=== PATIENT | female | born 1995 | race Hispanic/Latino ===

== ENCOUNTER 2018-01-27 | Emergency (ER) | payer SELFPAY ==
--- NOTE | 2018-01-27 18:39 | EDPHYS ---
Physician Documentation [facility] Name: Arely Gomez Age: 22 yrs Sex: Female : 1995 Arrival Date: 01/27/2018 Time: 16:56 Bed 14 Private MD: ED Physician Willard Gomez HPI: 01/27 18:35 This 22 yrs old Female presents to ER via Ambulatory with complaints of rn Headache. 18:35 The patient complains of pain to the forehead. The patient describes the headache as rn aching. Onset: The symptoms/episode began/occurred 4 day(s) ago. Associated signs and symptoms: Pertinent negatives: altered mental status, dizziness, fever, malaise, nausea, neck stiffness, paresthesias, Photophobia rash, sinus congestion, sinus tenderness, vision changes, vision loss, vomiting, weakness, vertigo. Severity of symptoms: At its worst the pain was moderate, in the emergency department the pain has resolved. The patient has experienced similar episodes in the past. Reports intermittent headache for 4 days, gets better with medication from [place], no trauma, no fever, no vomiting, currently pain free because took a nap. No drug use. Currently on menstrual cycle. . 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 - Social history:: Smoking status: Patient uses tobacco products, denies chronic smoking, but will smoke occasionally. - Family history:: not pertinent. - Hospitalizations: : No recent hospitalization is reported. ROS: 18:35 Constitutional: Negative for fever, chills, and weight loss, Eyes: Negative for injury, rn pain, redness, and discharge, Neck: Negative for injury, pain, and swelling, Cardiovascular: Negative for chest pain, palpitations, and edema, Respiratory: Negative for shortness of breath, cough, wheezing, and pleuritic chest pain, Abdomen/GI: Negative for abdominal pain, nausea, vomiting, diarrhea, and constipation, Back: Negative for injury and pain, MS/Extremity: Negative for injury and deformity, Skin: Negative for injury, rash, and discoloration, Neuro: Negative for weakness, numbness, tingling, and seizure. Exam: 18:35 Constitutional: This is a well developed, well nourished patient who is awake, alert, rn and in no acute distress. Head/Face: Normocephalic, atraumatic. Eyes: Pupils equal round and reactive to light, extra-ocular motions intact. Lids and lashes normal. Conjunctiva and sclera are non-icteric and not injected. Cornea within normal limits. Periorbital areas with no swelling, redness, or edema. Neck: Trachea midline, no thyromegaly or masses palpated, and no cervical lymphadenopathy. Supple, full range of motion without nuchal rigidity, or vertebral point tenderness. No Meningismus. Cardiovascular: Regular rate and rhythm with a normal S1 and S2. No gallops, murmurs, or rubs. Normal PMI, no JVD. No pulse deficits. Respiratory: Lungs have equal breath sounds bilaterally, clear to auscultation and percussion. No rales, rhonchi or wheezes noted. No increased work of breathing, no retractions or nasal flaring. Abdomen/GI: Soft, non-tender, with normal bowel sounds. No distension or tympany. No guarding or rebound. No evidence of tenderness throughout. Skin: Warm, dry with normal turgor. Normal color with no rashes, no lesions, and no evidence of cellulitis. MS/ Extremity: Pulses equal, no cyanosis. Neurovascular intact. Full, normal range of motion. Equal circumference. Neuro: Awake and alert, GCS 15, oriented to person, place, time, and situation. Cranial nerves II-XII grossly intact. Motor strength 5/5 in all extremities. Sensory grossly intact. Cerebellar exam normal. Normal gait. Vital Signs: 17:05 BP 136 / 88; Pulse 80; Resp 19; Temp 98.3; Pulse Ox 98% on R/A; Weight 94.8 kg; Height aj 5 ft. 6 in. (167.64 cm); Pain 6/10; 18:35 BP 139 / 95; Pulse 96; Resp 17; Pulse Ox 99% on R/A; tw2 18:42 BP 125 / 91; Pulse 79; Resp 17; Pulse Ox 99% on R/A; tw2 17:05 Body Mass Index 33.73 (94.80 kg, 167.64 cm) [place] Coma Score: 18:35 Eye Response: spontaneous(4). Verbal Response: oriented(5). Motor Response: obeys rn commands(6). Total: 15. MDM: 18:29 Patient medically screened. rn 18:35 Differential diagnosis: migraine, tension headache, allergies. Data reviewed: vital rn signs, nurses notes, and as a result, I will discharge patient. Counseling: I had a detailed discussion with the patient and/or guardian regarding: the historical points, exam findings, and any diagnostic results supporting the discharge/admit diagnosis, the need for outpatient follow up, to return to the emergency department if symptoms worsen or persist or if there are any questions or concerns that arise at home. Response to treatment: the patient's condition has returned to base line, the patient is now symptom free, and as a result, I will discharge patient. ED course: Patient with normal neuro exam, intermittent, sounds congested, most likely allergies/seasonal allergies or tension headache as she states has 7 children at home, currently pain free, no indication for emergent CT. . Administered Medications: No medications were administered Disposition: 01/27/18 18:39 Discharged to Home. Impression: Headache, Other seasonal allergic rhinitis. - Condition is Stable. - Discharge Instructions: Allergies, General Headache Without Cause. - Medication Reconciliation Form, Thank You Letter, Antibiotic Education, Prescription Opioid Use form. - Follow up: Private Physician; When: As needed; Reason: Recheck today's complaints, Re-evaluation by your physician. - Problem is new. - Symptoms have improved. Signatures: Germania Austin RN RN aj Nieto, Roman, MD MD rn Wise, Tara, RN RN tw2
--- NOTE | 2018-01-27 18:39 | ER ---
Nurse's Notes [facility] Name: Arely Gomez Age: 22 yrs Sex: Female : 1995 Arrival Date: 01/27/2018 Time: 16:56 Bed 14 Private MD: Diagnosis: Headache;Other seasonal allergic rhinitis Presentation: 01/27 17:03 Presenting complaint: Patient states: Headache for [address] Patient [address] herself and 2 aj children to hospital. Transition of care: patient was not received from another setting of care. Onset of symptoms was January 23, 2018. Care prior to arrival: None. 17:03 Method Of Arrival: Ambulatory 17:03 Acuity: SHIRA 3 aj Triage Assessment: 17:05 Headache History: The patient has had previous headaches. General: Appears in no aj apparent distress. comfortable, Behavior is calm, cooperative, appropriate for age. Pain: Complains of pain in face Pain currently is 6 out of 10 on a pain scale. Pain began 4 days ago Also complains of no other associated symptoms. Neuro: Level of Consciousness is awake, alert, obeys commands, Oriented to person, place, time, situation. Respiratory: Airway is patent Respiratory effort is even, unlabored, Respiratory pattern is regular, symmetrical. GI: Abdomen is non-distended, obese. Derm: Skin is intact, is healthy with good turgor, Skin is pink, warm \T\ dry. normal. [employer]POSING ROOM: 17:05 LMP 01/05/2018 Historical: - Allergies: 17:05 No Known Allergies; aj - Home Meds: 17:05 None [Active]; aj - PMHx: 17:05 None; aj - PSHx: 17:05 ; aj - Immunization history:: Adult Immunizations up to date. - Social history:: Smoking status: Patient uses tobacco products, denies chronic smoking, but will smoke occasionally. - Family history:: not pertinent. - Hospitalizations: : No recent hospitalization is reported. Screenin:27 Abuse screen: Denies threats or abuse. Nutritional screening: No deficits noted. tw2 Tuberculosis screening: No symptoms or risk factors identified. Fall Risk None identified. Assessment: 18:35 General: Appears in no apparent distress. slender, well groomed, Behavior is calm, tw2 cooperative, appropriate for age. Pain: Complains of pain in face. Neuro: Level of Consciousness is awake, alert, obeys commands, Oriented to person, place, time, situation, Gait is steady, Speech is normal, Facial symmetry appears normal. Cardiovascular: Denies chest pain, shortness of breath, Heart tones S1 S2 Capillary refill < 3 seconds. Respiratory: Reports cough that is Airway is patent Respiratory effort is even, unlabored, Respiratory pattern is regular, symmetrical, Breath sounds are clear bilaterally. GI: No signs and/or symptoms were reported involving the gastrointestinal system. Abdomen is round obese, Bowel sounds present X 4 quads. Abd is soft and non tender X 4 quads. : No signs and/or symptoms were reported regarding the genitourinary system. EENT: Reports nasal congestion nasal discharge. Derm: No signs and/or symptoms reported regarding the dermatologic system. Musculoskeletal: Range of motion: intact in all extremities. Vital Signs: 17:05 BP 136 / 88; Pulse 80; Resp 19; Temp 98.3; Pulse Ox 98% on R/A; Weight 94.8 kg; Height aj 5 ft. 6 in. (167.64 cm); Pain 6/10; 18:35 BP 139 / 95; Pulse 96; Resp 17; Pulse Ox 99% on R/A; tw2 18:42 BP 125 / 91; Pulse 79; Resp 17; Pulse Ox 99% on R/A; tw2 17:05 Body Mass Index 33.73 (94.80 kg, 167.64 cm) aj [place] Coma Score: 18:35 Eye Response: spontaneous(4). Verbal Response: oriented(5). Motor Response: obeys rn commands(6). Total: 15. ED Course: 16:56 Patient arrived in ED. mr 17:04 Triage completed. aj 17:05 Arm band placed on left wrist. Patient placed in waiting room, Patient notified of wait aj time. 18:27 Giovanna Mcneil RN is Primary Nurse. tw2 18:28 Willard Gomez MD is Attending Physician. rn 18:28 Call light in reach. Pulse ox on. NIBP on. tw2 18:37 No provider procedures requiring assistance completed. Patient did not have IV access tw2 during this emergency room visit. Administered Medications: No medications were administered Outcome: 18:39 Discharge ordered by . rn 18:42 Discharged to home ambulatory. tw2 18:42 Condition: stable 18:42 Discharge instructions given to patient, Instructed on discharge instructions, follow up and referral plans. Demonstrated understanding of instructions, follow-up care. 18:44 Patient left the ED. tw2 Signatures: Germania Austin RN RN aj Rivera, Maria mr Nieto, Roman, MD MD rn Wise, Tara, RN RN tw2
== END 2018-01-27 18:44 | disposition home or self-care (01) ==
CPT/HCPCS: 99283